=== PATIENT | female | born 1990 | race Caucasian/White ===

== ENCOUNTER 2018-08-09 22:31 | Inpatient (IN) | payer MEDICAID, SELFPAY ==
[2018-06-03 10:55] VITALS: BMI 28.5
[2018-08-09] MEDS: Lactated Ringers 1,000 ML 50 ML IV (23:15)
[2018-08-09 23:33] LABS: Absolute Lymphocyte Count 1.41 X10^3/ul (0.83-4.51); Absolute Neutrophil Count 10.9 X10^3/uL (2.0-7.7); Basophil# 0.01 X10^3/uL; Basophil% 0.1 % (0-1); Eosinophil# 0.07 X10^3/uL; Eosinophils% 0.5 % (0-5); Hematocrit 39.7 % (37-47); Hemoglobin 13.4 g/dl (12.0-15.0); Lymphocyte # 1.41 X10^3/ul (4.0); Lymphocyte % 10.4 % (19-41); Mean Corp Hgb Conc 33.8 g/gl (32-36); Mean Corpuscular Hgb 30.1 pg (27.0-32.0); Mean Corpuscular Volume 89.2 fL (81-99); Mean Platelet Vol. 12.4 fl (6.2-12.0); Monocyte% 8.1 % (0-10); Neutrophil # 10.93 X10^3/uL (2.7-7.7); Neutrophil % 80.5 % (47-70); POSITIVE COUNT NO; POSITIVE DIFFERENTIAL NO; POSITIVE MORPHOLOGY NO; Platelet Count 160 K/mm3 (150-450); RBC Distribution Width CV 15.5 % (11.6-14.6); Red Blood Count 4.45 M/mm3 (4.2-5.4); White Blood Count 13.6 K/mm3 (4.4-11.0)
[2018-08-10] VITALS (15 sets, daily range): BP systolic 94–140; BP diastolic 47–67; PULSE 86–133; RESP 16–18; TEMP 36.2–36.9; O2SAT 95–100
[2018-08-10] MEDS: 0.9% Saline Lock 10 ML Syringe IV ×2 (00:28→03:08)
--- NOTE | 2018-08-10 01:51 | HP.PCM_ITS ---
- Problem List (1) Iron deficiency anemia during Status: Acute (2) Positive GBS test Status: Acute History Date of Admission: 08/09/18 Final MYA: 08/03/18 Gestational age: 41 Weeks and 0 Days History of this : This is a 28 year-old, G [1], P [0], at 41 weeks gestational age presenting to triage reporting regular and strong abdominal contractions. Patient denies SROM, VB or copious vaginal discharge. Patient reports +FM. Patient course overall uncomplicated, patient was being followed for anemia of toward the end of her and has taken an iron supplement for her symptoms. Otherwise, course has been uncomplicated. Medical History: Medical History (Last Reviewed 07/30/18 @ 14:52 by Shona Godinez) Anemia D64.9 History of wisdom tooth extraction K08.409 and not yet delivered Z34.90 Allergies fluconazole [From Diflucan] Allergy (Verified 08/09/18 23:14) Hives brompheniramine maleate [From Dimetapp DM Cold-Cough (PE)] Adverse Reaction (Verified 08/09/18 23:14) Other bloody nose dextromethorphan HBr [From Dimetapp DM Cold-Cough (PE)] Adverse Reaction (Verified 08/09/18 23:14) Other bloody nose diphenhydramine HCl [From Benadryl] Adverse Reaction (Verified 08/09/18 23:14) Other bloody nose phenylephrine HCl [From Dimetapp DM Cold-Cough (PE)] Adverse Reaction (Verified 08/09/18 23:14) Other bloody nose Home Medications: Home Medications cholecalciferol (vitamin D3) 4,000 unit capsule 2,000 unit PO DAILY 06/03/18 ferrous sulfate 325 mg (65 mg iron) tablet 325 mg PO BID tab 06/03/18 lactobacillus combination no.9 4 billion cell capsule PO cap 06/03/18 Vits [Prenatabs FA] 1 tab PO DAILY 08/09/18 Smoking Status: Never smoker Alcohol: None Number of Fetus(es): 1 Heart Tracing: Baseline 120, moderate variability, + accels, no decels noted TOCO Analysis: Ctx q 2-5 minutes, palpate mild to moderate in strength History Past Pregnancies: Past Pregnancies Delivery Date Name GA/Weeks Outcome Route Weight Infant Gender Labor Length Anesthesia Delivery Location Provider FOB Labs: Negative GC/CT, Trich, yeast, BV cultures; Urine Culture Neg, Urine Tox Negative, HIV NR, HepBsAg Neg, Rubella Imm, Syphilis Neg, CF carrier screen Neg, AB+ Abs Neg, 1 hour GCT elevated with subsequent 3 hour GTT WNL, H/H = 12.6/38.3 --> 10.5/33.3 --> 12.1/38.2, GBS Pos Expected Infant Delivery Method: Spontaneous Vaginal Describe any other labor & delivery plans:: Planning NCB Number of Visits: Initiated at 7+5 weeks x 15 visits Review of Systems Constitutional: Denies: Chills, Fever, Weight Change HEENT: Denies: Head Aches, Sinus Congestion, Sinus Drainage Cardiovascular: Denies: Chest Pain, Palpitations Respiratory: Denies: Cough, Shortness of breath at rest, Sputum production Gastrointestinal: Denies: Abdominal Pain, Nausea, Vomiting Genitourinary: Denies: Dysuria Musculoskeletal: Denies: Joint Pain, Joint Tenderness Skin: Denies: Rash, Wounds Neurological: Denies: Numbness, Tingling, Focal weakness Psychiatric: Denies: Anxiety, Depression, Homicidal Ideations, Suicidal Ideations Hematologic/ Lymphatic: Denies: Easy Bruising, Easy Bleeding Physical Exam Vitals: See nursing note for vital signs - normotensive and afebrile General: Alert, Oriented x3, No apparent distress HEENT: Atraumatic, Normocephalic. Negative for: Thyromegaly, Lymphadenopathy Cardiovascular: Regular rate, Regular Rhythm Lungs: Clear to auscultation Abdomen: Bowel Sounds Present, Gravid Neurological: Deep Tendon Reflexes 2+/4 and Symmetrical, Neuro grossly intact [employer]OR: Normal external genitalia Estimated gestational size: Appropriate for gestational size - EFW = 7.5# Cervix Dilation (cm): 4 Station: -1 Effacement (%): 90 Assessment/Plan All Active Problems (Last Reviewed 07/30/18 @ 14:52 by Shona Godinez) Iron deficiency anemia during (Acute) Positive GBS test (Acute) Segmental and somatic dysfunction of sacral region (Acute) Segmental and somatic dysfunction of lumbar region (Acute) This is a 28 year-old, G [1], P [0], at 41 weeks gestational age, Early Active Labor, Category I FHT P: 1) Admit patient - start IV, draw bloodwork CBC and T+S ordered 2) Encourage PO hydration and movement 3) Patient may utilize shower for hydrotherapy 4) Nitrous Oxide use PRN per patient's request 5) Dr. Ledezma OB back-up physician notified of admission Nallely ALBERT
[2018-08-10] MEDS: Lactated Ringers 1,000 ML 50 ML IV ×4 (04:18→14:32)
[2018-08-10] MEDS: fentaNYL-bupivacaine (epidural) 100 ML BAG EPIDURAL ×3 (04:52→14:32)
--- NOTE | 2018-08-10 06:55 | PN.OBGYN_ITS ---
Patient Problems: Active and Suspected Problems (Last Reviewed 07/30/18 @ 14:52 by Shona Godinez) Iron deficiency anemia during (Acute) Positive GBS test (Acute) Subjective: Patient labored well throughout night, made decision for epidural. Patient feels very comfortable now with epidural in place. Decision made to do SVE and break bag of gordon at this time. Kay catheter also planned to be placed by nursing staff. Objective: VSS, Afebrile FHT baseline 130, moderate variability, + accels, no decels noted Ctx q 3 minutes, palpate moderately strong SVE = 5/100/0 --> AROM for moderate light blood and meconium stained fluid --> 6/90/0 - Physical Exam General: Alert, Oriented x3, Cooperative HEENT: Atraumatic, Normocephalic Lungs: Normal air movement Cardiovascular: Regular rate Abdomen: Soft, Non Tender Extremities: No edema, Capillary Refill Less than 3 Seconds Skin: No rashes, No breakdown Musculoskeletal: No Tenderness to Palpation of Joints or Extremities Neurological: Cranial nerves II-XII grossly intact Psych/Mental Status: Normal Affect, Appropriate Weight: 169 lb 12.8 oz Body Mass Index (BMI) 30.0 Intake and Output for Last 24 Hours 08/08/18 08/09/18 08/10/18 23:59 23:59 23:59 Intake Total 1981 Output Total 200 / 200 Balance 1782 / 1782 Laboratory Tests Past 24 Hrs 08/09/18 08/09/18 23:12 23:12 WBC 13.6 H RBC 4.45 Hgb 13.4 Hct 39.7 MCV 89.2 MCH 30.1 MCHC 33.8 RDW 15.5 H RDW Differential 51.0 H Plt Count 160 MPV 12.4 H Immature Gran % (Auto) 0.400 Neut % (Auto) 80.5 H Lymph % (Auto) 10.4 L [place] % (Auto) 8.1 Eos % (Auto) 0.5 Baso % (Auto) 0.1 Absolute Neuts (auto) 10.9 H Absolute Lymphs (auto) 1.41 Total Counted Not Reportable Blood Type AB POSITIVE Antibody Screen NEGATIVE Medical Necessity - Tobacco Use Smoking Status: Never smoker Assessment/Plan All Active Problems (Last Reviewed 07/30/18 @ 14:52 by Shona Godinez) Iron deficiency anemia during (Acute) Positive GBS test (Acute) Segmental and somatic dysfunction of sacral region (Acute) Segmental and somatic dysfunction of lumbar region (Acute) 28 y/o @ 41 weeks, Active Labor, Category I FHT P: 1) Continue present management 2) Encourage position changes once urinary kay catheter placed 3) Consider IV pitocin for labor augmentation if contractions start to space out at this time 4) Dr. Ledezma updated on patient status Nallely Padron APRN-MARSHALL
[2018-08-10] MEDS: Ondansetron 4 MG/2 ML Vial IV ×2 (06:57→11:18)
[2018-08-10] MEDS: Oxytocin 30 units/NS 500 ml 30 UNITS/500 ML IV.SOLN IV (09:14)
--- NOTE | 2018-08-10 11:32 | PCM.PN.BLA ---
Progress Note Patient remains comfortable with epidural - nursing staff has checked patient at this time. She is 9cm currently and baby is asynclitic. Will continue changing patient's position and then start trial of pushing once she is complete. Nallely Padron APRN-MARYCHUYM
--- NOTE | 2018-08-10 14:36 | PCM.PN.BLA ---
Progress Note Addendum: SVE recheck by nursing staff about an hour ago - AL/100/-1 to 0 station. Thick meconium noted now. Category I-II FHT noted, minimal variability now without any accels, occasional early decels. +caput noted difficulty noted by nursing staff to assess for positioning d/t caput. Patient resting soundly, will recheck cervix once patient awake. Anticipate that patient will need to labor down. Dr. Ledezma appraised of patient status.
--- NOTE | 2018-08-10 16:22 | PN.OBGYN_ITS ---
Patient Problems: Active and Suspected Problems (Last Reviewed 07/30/18 @ 14:52 by Shona Godinez) Iron deficiency anemia during (Acute) Positive GBS test (Acute) Subjective: Patient has been resting and sleeping well - RN called this provider to evaluate presentation. Per nursing staff, something just feels different. Bedside ultrasound confirms vtx presentation. This provider to do SVE and assess position Objective: FHT baseline 135, moderate variability, few accels, early decels and rare mild variables Ctx q 2-4 minutes, lasting 60 seconds, palpate strong SVE = 9.5/100/-1 with caput to 0. LOT by Lazaro's - difficult to assess position by SVE alone. Majority of head above ischial spines. Midpelvis very narrow on exam and pubic arch slightly narrow. Evidence of Deep Transverse Arrest - Physical Exam General: Alert, Oriented x3, Cooperative Lungs: Normal air movement Abdomen: Soft, Non Tender Extremities: No edema Neurological: Deep Tendon Reflexes 2+/4 and Symmetrical Psych/Mental Status: Normal Affect, Appropriate Weight: 169 lb 12.8 oz Body Mass Index (BMI) 30.0 Intake and Output for Last 24 Hours 08/08/18 08/09/18 08/10/18 23:59 23:59 23:59 Intake Total 1981 / 1981 Output Total 200 / 200 Balance 1782 / 1782 Laboratory Tests Past 24 Hrs 08/09/18 08/09/18 23:12 23:12 WBC 13.6 H RBC 4.45 Hgb 13.4 Hct 39.7 MCV 89.2 MCH 30.1 MCHC 33.8 RDW 15.5 H RDW Differential 51.0 H Plt Count 160 MPV 12.4 H Immature Gran % (Auto) 0.400 Neut % (Auto) 80.5 H Lymph % (Auto) 10.4 L [place] % (Auto) 8.1 Eos % (Auto) 0.5 Baso % (Auto) 0.1 Absolute Neuts (auto) 10.9 H Absolute Lymphs (auto) 1.41 Total Counted Not Reportable Blood Type AB POSITIVE Antibody Screen NEGATIVE Medical Necessity - Tobacco Use Smoking Status: Never smoker Assessment/Plan All Active Problems (Last Reviewed 07/30/18 @ 14:52 by Shona Godinez) Iron deficiency anemia during (Acute) Positive GBS test (Acute) Segmental and somatic dysfunction of sacral region (Acute) Segmental and somatic dysfunction of lumbar region (Acute) 28 y/o @ 41 weeks, Protracted Active Phase, Category I to II FHT 1) Discussed with patient and family concerns of lack of descent and constricted midpelvis with evidence of Deep Transverse Arrest on exam 2) Consultation with Dr. Ledezma - discussed that by 5:30pm if no cervical change noted, patient will be considered arrest of dilation. Plan for primary LTCS if no cervical change noted. 3) All questions answered 4) Reassess SVE by 5:30pm Nallely ALBERT
[2018-08-10] MEDS: CHLORHEXIDINE GLUC 2% CLOTH 1 EACH TOWELETTE TOPICAL (17:15)
--- NOTE | 2018-08-10 17:21 | PCM.PN.BLA ---
Progress Note Cervical recheck done - cervix is unchanged and even more swollen now 9/100/0 with +caput noted. Decision made to progress to primary LTCS. Orders for antibiotics faxed, patient is being prepped by nursing staff for . Transfer of care to medical management. Nallely Padron APRN-MARSHALL
[2018-08-10] MEDS: Cefazolin 2 GM in 0.9% Normal Saline 100 ML IV (17:58)
[2018-08-10] MEDS: Oxytocin 30 units/NS 500 ml 30 UNITS/500 ML IV.SOLN 167 UNITS IV (18:08)
--- NOTE | 2018-08-10 18:55 | OP.PCM_ITS ---
Problem List (1) 41 weeks gestation of Status: Acute (2) Failure to progress in labor Status: Acute Report of Operation Date of Procedure: 08/10/18 Pre-Operative Diagnosis: 41 week gestation, failure to progress, CPD Post-Operative Diagnosis: As above Surgery/Procedure Performed:: PLTCS via pfannenstiel incision Description of Surgical Findings:: 8lb 12oz and in transverse position with significant caput. Pelvis felt to be narrow. Normal appearing uterus, bilateral tubes, bilateral ovaries. Placenta normal appearing with a 3 vessel cord. Type of Anesthesia:: Epidural Special Medications: None Specimen's removed: Placenta Drains: Mclaughlin Estimated Blood Loss (mL): 600 cc Fluids Replaced: 1000 cc Description of Procedure: Patient was prepped and draped in usual sterile fashion in supine position. Epidural anesthesia was noted to be adequate. A Pfannenstiel skin incision was made with the scalpel and the incision was carried down to the underlying layer of fascia. The fascia was incised in the midline. The fascia was then dissected off of the rectus muscles cephalad and caudad using the Bovie cautery. The rectus muscles were in the midline. The peritoneum was entered sharply and extended cephalad and caudad with good visualization of the bladder. A bladder flap was created. A low transverse incision was made on the uterus. VMI was delivered through the uterine incision without any force or delay. The cord was clamped and cut after a 60 sec delay, and the infant was then handed off to the nursery staff. The placenta was manually extracted. The uterus was cleared of all clot and debris. The uterus was exteriorized and noted to be normal with normal bilateral adnexa. The uterine incision was closed in a running locked fa shion. A hematoma under the serosa of the uterus, and above the left side of the uterus was noted. The hematoma was noted to be about 2x3 cm in size, and not increasing in size. Several additional [id number] sutures were placed along the uterine incision until hemostasis was noted. The uterus was then placed back into the abdomen. The uterine incision was again inspected and noted to be hemos tatic. The hematoma was again inspected and noted to be stable in size. The peritoneum was closed in running fashion. The fascia was closed in running fashion. The subcutaneous space was copiously irrigated, and then closed in a running fashion. The skin was closed in a subcuticular fashion, and steri strips were placed over the incision. A dressing was placed over the incision. Instrument counts were correct. The patient tolerated the procedure well and was taken to the recovery room in stable condition. Grafts/Implants Used: None - Complications None - Admit VTE Documentation VTE Present on Admission: No VTE Mechan Device Prophylaxis: SCD's VTE Pharm Prophylaxis ordered?: Yes Delivery Final MYA: 08/03/18 Gestational age: 41 Weeks and 0 Days Indications for : Failure to Progress Amniotic Membrane Rupture Type: Artificial Amniotic Fluid Description: Moderate meconium Drain: Mclaughlin to straight drain Cord Entanglement: None Cord Vessel Description: 3 Vessels Infant Gender: Male Delayed cord clamping: Yes Pt instructed on risks of surgery: Bleeding, Infection, Injury to surrounding structure(s) including bowel and bladder Complications: None Baby B - Information Amniotic Membrane Rupture Type: Spontaneous Presentation: Vertex - Operative Information Cord Entanglement: None Cord Vessel Description: 3 Vessels Infant B gender: Male
[2018-08-10] MEDS: Lactated Ringers 1,000 ML 100 ML IV (20:08)
--- NOTE | 2018-08-10 20:59 | NURSING ---
epidural catheter removed, blue tip intact
[2018-08-10] MEDS: Ketorolac 30 MG/ML Syringe IV (23:46)
[2018-08-11] VITALS (17 sets, daily range): BP systolic 101–127; BP diastolic 54–68; PULSE 92–114; RESP 16–18; TEMP 36.2–36.9; O2SAT 96–97
[2018-08-11] MEDS: Ketorolac 30 MG/ML Syringe IV ×2 (05:37→10:27)
[2018-08-11] MEDS: Lactated Ringers 1,000 ML 100 ML IV (05:38)
[2018-08-11 06:16] LABS: Hematocrit 30.4 % (37-47); Mean Corp Hgb Conc 32.9 g/gl (32-36); Mean Corpuscular Hgb 29.7 pg (27.0-32.0); Mean Corpuscular Volume 90.2 fL (81-99); Mean Platelet Vol. 12.3 fl (6.2-12.0); Platelet Count 129 K/mm3 (150-450); RBC Distribution Width CV 15.7 % (11.6-14.6); RBC Distribution Width SD 50.6 fl (35.1-43.9); Red Blood Count 3.37 M/mm3 (4.2-5.4); White Blood Count 15.5 K/mm3 (4.4-11.0)
[2018-08-11 06:36] LABS: Scan Indicated on CBC? Y/N NO
--- NOTE | 2018-08-11 10:09 | PCM.PN.OB ---
Patient Problems: Active and Suspected Problems (Last Reviewed 07/30/18 @ 14:52 by Shona Godinez) Iron deficiency anemia during (Acute) Positive GBS test (Acute) 41 weeks gestation of (Acute) Failure to progress in labor (Acute) Subjective: Patient sitting up in bed finishing her breakfast at this time and getting ready to help infant latch. Patient reports that baby is every eager to feed and at times gets fussy at the breast. Patient reports she has been up to the bathroom to ambulate. she reports bleeding is tapering down and that incision pain is well controlled. Patient denies any other issues at this time. Objective: VSS, Afebrile - see nursing notes Nipples slightly flat with ecchymoses at nipple tips Abdomen NT x 4 quadrants, dressing dry and intact FF midline 2FB below umbilicus +2/4 reflexes in LE, no edema noted, negative calf tenderness to palpation scant rubra lochia - Physical Exam General: Alert, Oriented x3, Cooperative HEENT: Atraumatic, Normocephalic Neck: Supple Lungs: Normal air movement Cardiovascular: Regular rate, Regular Rhythm Abdomen: Soft, Non Tender, - - Dressing dry and intact, FF midline 2FB below umbilicus Extremities: No edema, Capillary Refill Less than 3 Seconds Skin: No rashes, No breakdown Musculoskeletal: No Tenderness to Palpation of Joints or Extremities Neurological: Cranial nerves II-XII grossly intact Psych/Mental Status: Normal Affect, Appropriate Vital Signs Temp Pulse Resp BP Pulse Ox 97.6 F L 114 H 16 111/54 L 96 08/11/18 09:00 08/11/18 09:00 08/11/18 09:00 08/11/18 09:00 08/11/18 09:00 Oxygen Delivery Method Room Air Weight: 169 lb 12.8 oz Body Mass Index (BMI) 30.0 Intake and Output for Last 24 Hours 08/09/18 08/10/18 08/11/18 23:59 23:59 23:59 Intake Total 2390 / 2390 1479 / 1479 Output Total 800 / 800 975 / 975 Balance 1590 / 1590 504 / 504 Laboratory Tests Past 24 Hrs 08/11/18 05:45 WBC 15.5 H RBC 3.37 L Hgb 10.0 L Hct 30.4 L MCV 90.2 MCH 29.7 MCHC 32.9 RDW 15.7 H RDW Differential 50.6 H Plt Count 129 L MPV 12.3 H Medical Necessity - Tobacco Use Smoking Status: Never smoker Assessment/Plan All Active Problems (Last Reviewed 07/30/18 @ 14:52 by Shona Godinez) Iron deficiency anemia during (Acute) Positive GBS test (Acute) 41 weeks gestation of (Acute) Failure to progress in labor (Acute) Segmental and somatic dysfunction of sacral region (Acute) Segmental and somatic dysfunction of lumbar region (Acute) 28 y/o s/p Primary LTCS for failure to progress, POD #1 P: 1) Continue PP orders at this time, Consultation visit also 2) Anticipate discharge to home tomorrow night or Sunday AM Nallely ALBERT
[2018-08-11] MEDS: Enoxaparin 40 MG/0.4 ML Syringe SC (10:27)
[2018-08-11] MEDS: Senna/Docusate Sodium 1 Tablet PO (17:02)
[2018-08-11] MEDS: Ibuprofen 600 MG Tablet PO ×2 (17:02→23:23)
--- NOTE | 2018-08-12 00:29 | NURSING ---
Mclaughlin catheter discontinued by previous nurse. Pt. has had two voids since discontinuation and reports no issues with voiding. IV was also discontinued per previous nurse d/t it coming out of place when pt. showered.
[2018-08-12 02:36] VITALS: RESP 15; TEMP 36.2
[2018-08-12 02:51] VITALS: BP 123/59; PULSE 91; RESP 18; TEMP 36.2; O2SAT 97
[2018-08-12 08:00] VITALS: BP 118/67; PULSE 78; RESP 16; TEMP 36
--- NOTE | 2018-08-12 08:21 | PCM.DC.D&C ---
Discharge Diet: No Restrictions Discharge Activity: Return to Normal Activity, May Shower, May Take a Tub Bath - in 2 weeks. Allergies/Adverse Reactions: Allergies fluconazole [From Diflucan] Allergy (Verified 08/09/18 23:14) Hives brompheniramine maleate [From Dimetapp DM Cold-Cough (PE)] Adverse Reaction (Verified 08/09/18 23:14) Other bloody nose dextromethorphan HBr [From Dimetapp DM Cold-Cough (PE)] Adverse Reaction (Verified 08/09/18 23:14) Other bloody nose diphenhydramine HCl [From Benadryl] Adverse Reaction (Verified 08/09/18 23:14) Other bloody nose phenylephrine HCl [From Dimetapp DM Cold-Cough (PE)] Adverse Reaction (Verified 08/09/18 23:14) Other bloody nose Medications to take at Discharge cholecalciferol (vitamin D3) 4,000 unit capsule 2,000 unit PO DAILY 06/03/18 ferrous sulfate 325 mg (65 mg iron) tablet 325 mg PO BID tab 06/03/18 lactobacillus combination no.9 4 billion cell capsule PO cap 06/03/18 Vits [Prenatabs FA] 1 tab PO DAILY 08/09/18 Docusate Sodium [Colace] 100 mg PO BID PRN PRN #60 cap 08/12/18 Ibuprofen [Motrin] 800 mg PO TID PRN PRN #60 tab 08/12/18 The following prescriptions were given: Docusate Sodium [Colace] 100 mg PO BID PRN PRN #60 cap PRN Reason: Constipation Transmission Status: Pending to [facility] Ibuprofen [Motrin] 800 mg PO TID PRN PRN #60 tab PRN Reason: Pain Transmission Status: Pending to [facility] Primary Care Physician: Calvin Drew III, MD [Primary Care Provider] - Test Results: Test results from this visit will be discussed in further detail at your follow-up appointment, if applicable. Please Follow Up With: Elba Ledezma, - [phone] When: In our office in 1-2 and 6 weeks or as needed
--- NOTE | 2018-08-12 08:22 | PCM.PN.OB ---
Patient Problems: Active and Suspected Problems (Last Reviewed 07/30/18 @ 14:52 by Shona Godinez) Iron deficiency anemia during (Acute) Positive GBS test (Acute) 41 weeks gestation of (Acute) Failure to progress in labor (Acute) Subjective: Pain well controlled, average lochia. Positive flatus but no bowel movement. Breast-feeding is going well. Patient has not taken any narcotics for pain control. - Physical Exam General: Alert, Oriented x3, Cooperative, No apparent distress HEENT: Normocephalic Abdomen: Soft, Distended - Mildly, softly, Tender - Appropriate Skin: No rashes, Incision - Bandage with small amount of sanguinous drainage that has not increased from line that was drawn previously. Otherwise its dry and intact. No erythema surrounding the bandage Psych/Mental Status: Normal Affect, Appropriate Vital Signs Temp Pulse Resp BP Pulse Ox 97.1 F L 91 18 123/59 H 97 08/12/18 02:51 08/12/18 02:51 08/12/18 02:51 08/12/18 02:51 08/12/18 02:51 Oxygen Delivery Method Room Air Weight: 77.02 kg Body Mass Index (BMI) 30.0 Intake and Output for Last 24 Hours 08/10/18 08/11/18 08/12/18 23:59 23:59 23:59 Intake Total 2390 / 2390 1479 / 1479 Output Total 800 / 800 1425 / 1425 Balance 1590 / 1590 54 / 54 Medical Necessity - Tobacco Use Smoking Status: Never smoker Assessment/Plan All Active Problems (Last Reviewed 07/30/18 @ 14:52 by Shona Godinez) Iron deficiency anemia during (Acute) Positive GBS test (Acute) 41 weeks gestation of (Acute) Failure to progress in labor (Acute) Segmental and somatic dysfunction of sacral region (Acute) Segmental and somatic dysfunction of lumbar region (Acute) 28-year-old female status post primary section for arrest of dilatation and descent. Mild acute blood loss anemia is appropriate for blood loss during surgery, patient is tolerating this well. Patient has not used narcotics for pain control. Declines narcotic prescription. Will be discharged home and is to alternate NSAIDs and acetaminophen and may use heat or ice as noted. If pain is not well controlled she can contact the office. She is to follow-up in the office in 1-2 in 6 weeks. She is breast-feeding and the is doing well. Patient desires discharge home today.
--- NOTE | 2018-08-12 08:28 | PCM.DC.SUM ---
Discharge Date and Diagnosis - Problem List Patient Problems: Active and Suspected Problems (Last Reviewed 07/30/18 @ 14:52 by Shona Godinez) Iron deficiency anemia during (Acute) Positive GBS test (Acute) 41 weeks gestation of (Acute) Failure to progress in labor (Acute) Date of Admission: 08/09/18 Date of Discharge: 08/12/18 - Primary Discharge Diagnosis Active and Suspected Problems (Last Reviewed 07/30/18 @ 14:52 by Shona Godinez) Iron deficiency anemia during (Acute) Positive GBS test (Acute) 41 weeks gestation of (Acute) Failure to progress in labor (Acute) Hospital Course and Treatment Operations: - - primary LTCS Procedures: None Summary of Care Provided: The patient is a 28 year old primigravida female presented in labor. She progressed to 9 cm. She then had arrest of dilatation and descent. She remained 9 cm for greater than 6 hours and underwent a primary low transverse section. This was performed without difficulty. Postoperatively the patient had mild acute blood loss anemia. She was tolerating this well. By postoperative day #2 she is ambulating, urinating tolerating regular diet and oral pain medications. She was discharged home with routine instructions and to follow-up in the office in 1-2 and in 6 weeks or as needed. She did not use any narcotics while she was in the hospital so narcotic prescription was not given for discharge home. If her pain is poorly controlled at home she is to contact the office. The was breast-feeding and doing well in the regular nursery. [] Patient Problems: Active and Suspected Problems (Last Reviewed 07/30/18 @ 14:52 by Shona Godinez) Iron deficiency anemia during (Acute) Positive GBS test (Acute) 41 weeks gestation of (Acute) Failure to progress in labor (Acute) - Physical Exam Vital Signs Temp Pulse Resp BP Pulse Ox 97.1 F L 91 18 123/59 H 97 08/12/18 02:51 08/12/18 02:51 08/12/18 02:51 08/12/18 02:51 08/12/18 02:51 Oxygen Delivery Method Room Air Weight: 77.02 kg Body Mass Index (BMI) 30.0 Intake and Output for Last 24 Hours 08/10/18 08/11/18 08/12/18 23:59 23:59 23:59 Intake Total 2390 / 2390 1479 / 1479 Output Total 800 / 800 1425 / 1425 Balance 1590 / 1590 54 / 54 Discharge Diet: No Restrictions Discharge Activity: Return to Normal Activity, May Shower, May Take a Tub Bath - in 2 weeks. Home Medications: Medications to take at Discharge cholecalciferol (vitamin D3) 4,000 unit capsule 2,000 unit PO DAILY 06/03/18 ferrous sulfate 325 mg (65 mg iron) tablet 325 mg PO BID tab 06/03/18 lactobacillus combination no.9 4 billion cell capsule PO cap 06/03/18 Vits [Prenatabs FA] 1 tab PO DAILY 08/09/18 Docusate Sodium [Colace] 100 mg PO BID PRN PRN #60 cap 08/12/18 Ibuprofen [Motrin] 800 mg PO TID PRN PRN #60 tab 08/12/18 Following Prescrptions Were Given to Patient: Docusate Sodium [Colace] 100 mg PO BID PRN PRN #60 cap PRN Reason: Constipation Transmission Status: Pending to [facility] Ibuprofen [Motrin] 800 mg PO TID PRN PRN #60 tab PRN Reason: Pain Transmission Status: Pending to [facility] Primary Care Physician: Calvin Drew III, MD [Primary Care Provider] - Please Follow Up With: Elba Ledezma, DO - [phone] When: In our office in 1-2 and 6 weeks or as needed Medical Necessity - Tobacco Use Smoking Status: Never smoker Meaningful Use Info Meaningful Use Diagnoses (Choose all that apply): None applicable
[2018-08-12] MEDS: Enoxaparin 40 MG/0.4 ML Syringe SC (10:16)
[2018-08-12] MEDS: Ibuprofen 600 MG Tablet PO (10:16)
[2018-08-12 14:00] VITALS: BP 117/72; PULSE 82; RESP 16; TEMP 36
== END 2018-08-12 15:05 | disposition home or self-care (01) | DRG 540 ==
PROVIDERS: Admitting Provider Obstetrics & Gynecology; Family Provider Family Medicine; PCP Family Medicine; Referring Provider Advanced Practice Midwife; Visit Provider Obstetrics & Gynecology
DX: O62.0 Primary inadequate contractions (principal); Z37.0 Single live birth; O99.824 Streptococcus B carrier state complicating childbirth; O48.0 Post-term pregnancy; Z3A.41 41 weeks gestation of pregnancy; D50.9 Iron deficiency anemia, unspecified; O99.02 Anemia complicating childbirth; O33.9 Maternal care for disproportion, unspecified; O77.0 Labor and delivery complicated by meconium in amniotic fluid; O64.0XX0 Obstructed labor due to incomplete rotation of fetal head, not applicable or unspecified
CPT/HCPCS: 59025; 59050; 85025; 85027; 86850; 86900; 99218; J7120; A4216; G0378; J2405

== ENCOUNTER 2020-05-25 09:07 | Emergency (ER) | payer OTHER, SELFPAY ==
[2020-05-25 09:08] VITALS: BP 90/74; PULSE 91; RESP 16; TEMP 35.6; O2SAT 98; BMI 23.1
--- NOTE | 2020-05-25 09:16 | ED.DCSUM_ITS ---
History of Present Illness Chief Complaint: Nausea/Vomiting/Diarrhea Informant: Patient Onset: Today Narrative: Acute vomiting diarrhea starting at 3 AM this morning. Too many to count. No hematemesis, no melena or hematochezia. Denies abdominal pain. Currently on h er menstrual period. Denies recent antibiotics. Denies any sick contacts. Reports chills. No urinary symptoms. No fevers or cough. Similar symptoms 2 years ago reporting getting dehydrated. Denies Covid exposures, no Covid infection in the past. States been tested in the past has been negative. Only abdominal surgery is . Prior similar symptoms: Yes Past Medical History - Allergies and Home Meds Allergies/Adverse Reactions: Allergies fluconazole [From Diflucan] Allergy (Verified 05/25/20 09:08) Hives brompheniramine maleate [From Dimetapp DM Cold-Cough (PE)] Adverse Reaction (Verified 05/25/20 09:08) Other bloody nose dextromethorphan HBr [From Dimetapp DM Cold-Cough (PE)] Adverse Reaction (Verified 05/25/20 09:08) Other bloody nose diphenhydramine HCl [From Benadryl] Adverse Reaction (Verified 05/25/20 09:08) Other bloody nose phenylephrine HCl [From Dimetapp DM Cold-Cough (PE)] Adverse Reaction (Verified 05/25/20 09:08) Other bloody nose Primary Care Physician: Calvin Drew III, MD [Primary Care Provider] - Past Medical History: None Smoking Status: Never smoker Review of Systems General: Denies: Chills, Fever, Sweats Eyes: Denies: Visual changes - bilaterally, Diplopia ENT: Denies: Rhinorrhea, Sore throat Cardiovascular: Denies: Chest pain, Palpitations Respiratory: Denies: Dyspnea, Cough, Dyspnea on exertion Gastrointestinal: Reports: Nausea, Vomiting, Diarrhea. Denies: Abdominal pain, Melena, Hematochezia Genitourinary: Denies: Dysuria, Hematuria, Frequency Musculoskeletal: Denies: Back pain, Extremity Pain Skin: Denies: Rash, Wounds Neurological: Denies: Headache, Weakness, Numbness Physical Exam Vital Signs/Narrative: Vital Signs Temp Pulse Resp BP Pulse Ox 05/25/20 09:08 96.1 F L 91 16 90/74 98 Inital Vital Signs reviewed: Yes General: Well nourished, Well developed, No Acute Distress Head: Normocephalic, Atraumatic Eyes: Perrl, EOMI ENT: No rhinorrhea, Dry mucous membranes, - - Mildly dry mucosal membranes. Neck: Supple, Nontender Cardiovascular: Regular rate, Regular rhythm, No murmurs Respiratory: No distress, CTA bilaterally, Chest nontender Abdomen: Soft, Nontender, Nondistended, Normal bowel sounds. Negative for: Guarding, Rebound tenderness Back: Nontender, Normal Inspection Extremities: Nontender, No edema Skin: Normal color, No rash Neurological: Alert, Oriented x3, Cranial nerves II-XII grossly intact, Normal Strength, Normal Sensation Psychological: Normal affect, Normal Mood Diagnostic/Tx/Re-eval - Medical Decision Making Abnormal Lab Results 05/25/20 05/25/20 11:25 Unknown Sodium 134 L Potassium 3.9 Chloride 99 Carbon Dioxide 24.0 Anion Gap 11 BUN 15 Creatinine 1.63 H Estim Creat Clear Calc 44.37 Est GFR (MDRD) Af Amer 48 L Est GFR (MDRD) Non-Af 40 L BUN/Creatinine Ratio 9.2 L Glucose 201 H Calcium 10.8 H Total Bilirubin 1.30 H AST 9 L ALT 15 Alkaline Phosphatase 108 Total Protein 10.0 H Albumin 5.3 H Globulin 4.7 H Albumin/Globulin Ratio 1.1 Urine Test Negative Patient nontoxic nontender abdomen. Mild dry mucosal membranes. She is order for 2 L of fluid and Zofran. I did check electrolytes which were normal however a creatinine 1.6 with no old for comparison. She denied any vomiting or diarrhea prior to this morning. hCG negative. No vomiting or diarrhea since medications. She had a mild headache during management able to tolerate p.o. intake with p.o. Tylenol. Discussed recheck labs outpatient by her PCP and continued oral hydration. Prescription of Zofran sent to her pharmacy. Covid testing negative. ED Disposition - Plan for ED Patient: Disposition: Home or Assisted Living Diagnosis: Vomiting and diarrhea, Renal insufficiency Instructions: ED Vomiting and Diarrhea ..., ED Renal Insufficiency Prescriptions: Ondansetron [Zofran Odt] 4 mg PO Q8H PRN PRN #10 tablet PRN Reason: Nausea Transmission Status: Pending to [facility] Referrals: Calvin Drew III, MD [Primary Care Provider] - Additional Instructions: Cr. 1.63. s/p 2 L IVF. Continue oral fluids at home Zofran as needed. Recheck labs by your PCP.
[2020-05-25] MEDS: Ondansetron 4 MG/2 ML Vial IV (09:34)
[2020-05-25] MEDS: 0.9% Normal Saline 1,000 ML 1000 ML IV ×2 (09:34→11:02)
[2020-05-25 10:12] LABS: ALB/GLOB Ratio 1.1 RATIO (0.9-2.4); AST(SGOT) 9 U/L (15-37); Alanine Aminotransfer ALT/SGPT 15 U/L (13-56); Albumin, Serum 5.3 g/dL (3.2-5.0); Alkaline Phosphatase 108 U/L (45-117); Anion Gap 11 (5-15); BUN 15 mg/dL (7-18); BUN/Creat Ratio 9.2 RATIO (10-20); Calcium,Total 10.8 mg/dL (8.5-10.1); Chloride 99 mmol/L (98-107); Creatinine, Serum 1.63 mg/dL (0.55-1.02); EST Glomerular Filtration Rate 40 mL/min (>60); Est Glom Filt Rate - Afr Amer 48 mL/min (>60); Estimated Creatinine Clearance 44.37 ml/min; Globulin 4.7 g/dL (2.2-4.2); Glucose 201 mg/dL (74-106); Potassium 3.9 mmol/L (3.5-5.1); Sodium Level 134 mmol/L (136-145)
[2020-05-25] MEDS: Acetaminophen 500 MG Tablet 1000 MG PO (11:02)
[2020-05-25 11:05] VITALS: BP 116/57; PULSE 105; RESP 18; O2SAT 99
[2020-05-25 11:47] LABS: Internal QC Validated? YES +Cl - CLEAR BKGD; Pregnancy, Urine Negative Negative
[2020-05-25 13:06] VITALS: BP 105/64; BP 15/6; RESP 16; TEMP 36.6; O2SAT 98
== END 2020-05-25 13:11 | disposition home or self-care (01) ==
PROVIDERS: Emergency Provider Emergency Medicine; PCP Family Medicine
DX: R11.2 Nausea with vomiting, unspecified (principal); R19.7 Diarrhea, unspecified; N28.9 Disorder of kidney and ureter, unspecified
CPT/HCPCS: 80053; 81025; 87426; 96361; 96374; 99284; J7030; A4216; J2405

== ENCOUNTER 2021-01-28 16:57 | Emergency (ER) | payer MEDICAID, SELFPAY ==
[2021-01-28 16:58] VITALS: BP 115/61; PULSE 89; RESP 14; TEMP 36.6; O2SAT 100; BMI 23.5
--- NOTE | 2021-01-28 17:27 | ED.VIS.FEGU ---
HPI HPI - Female History of Present Illness Chief Complaint: Vag Bld, Preg Pain Pain: Positive for Pelvic Pain Onset: Days (2) Context: Gradual Onset Timing: Continuous Quality: Positive for Cramping Location: Suprapubic (radiating into lowback) Current Severity: Mild Maximum Severity: Mild Worsened by: - (nothing) Relieved by: - (nothing) Bleeding Issue: Positive for Vaginal bleeding Onset: Days (2-3) Context: Gradual Onset Timing: Intermittent Current Severity: Spotting Maximum Severity: Spotting Associated Symptoms Associated Symptoms: Negative for Dysuria, Frequency, Urgency and Hematuria Last known menstrual period: 12/10/2020 Test: Positive, Urine and Home Sexually: Positive for Active and Single Partner P: 1 Ab: 0 Narrative Narrative: by home test has not had an ultrasound this yet, started having cramping and spotting within the last couple days. No syncope, presyncope, fevers, chills, urinary symptoms, or other symptoms right now. PFSH PFSH Medical History (Updated 01/28/21 @ 21:[address] Ervin Broussard MD) Anemia and not yet delivered Home Medications NK 01/28/21 [History Last Taken Unknown] Allergy/AdvReac Type Severity Reaction Status Date / Time fluconazole [From Diflucan] Allergy Hives Verified 01/28/21 17:00 brompheniramine maleate AdvReac Other Verified 01/28/21 17:00 [From Dimetapp DM Cold-Cough (PE)] dextromethorphan HBr AdvReac Other Verified 01/28/21 17:00 [From Dimetapp DM Cold-Cough (PE)] diphenhydramine HCl AdvReac Other Verified 01/28/21 17:00 [From Benadryl] phenylephrine HCl AdvReac Other Verified 01/28/21 17:00 [From Dimetapp DM Cold-Cough (PE)] Family History Other Breast cancer Cancer Hypertension Surgical History History of wisdom tooth extraction Social History (Updated 07/30/18 @ 15:[address] Linda Jj, BERTHA) Smoking Status: Never smoker alcohol intake: never substance use type: does not use what type of physical activity do you participate in: none ROS ROS ED Constitutional Constitutional ED: Denies chills or fever(s) Eyes Eyes: Denies change in vision or diplopia ENT ENT ED: Denies rhinorrhea or sore throat Cardiovascular Cardiovascular: Denies chest pain or palpitations Respiratory/Chest Respiratory/Chest: Denies cough or dyspnea Gastrointestinal Gastrointestinal: Reports as per HPI and abdominal pain; Denies diarrhea, nausea or vomiting Genitourinary Genitourinary ED: Reports as per HPI and vaginal bleeding; Denies dysuria or hematuria Musculoskeletal Musculoskeletal: Denies back pain or neck pain Integumentary Denies abscess or rash Neurologic Neurologic: Denies headache(s), paresthesias or weakness Psychiatric Psychiatric: Denies anxiety or suicidal thoughts EXAM Physical Exam Const Vital Signs: 01/28/21 16:58 01/28/21 19:26 01/28/21 21:30 Temperature 97.8 F Temperature Source Temporal Pulse Rate 89 70 Respiratory Rate 14 17 17 Blood Pressure 115/61 97/55 L Blood Pressure Mean 79 69 Pulse Ox 100 98 Oxygen Delivery Method Room Air Room Air Room Air Positive well nourished and well developed Constitutional Narrative: Well-appearing, pleasant, no distress General Appearance ED: well developed and NAD HEENT Reports moist mucous membranes normocephalic and atraumatic Eyes PERRL and EOMs intact bilaterally Neck full ROM and supple Resp normal respiratory effort and clear to auscultation bilaterally Cardio regular rate, regular rhythm and no murmurs Rate: Negative for tachycardic GI non-tender and non-distended Auscultation: normoactive bowel sounds Palpation: soft Speculum Exam - Vagina: vaginal bleeding Back/Spine no CVA tenderness General Back: other FROM Extremity normal to inspection General Extremety ED: Negative for edema, pulses abnormal or tenderness General Extremity: Negative for edema or pulses abnormal Neuro oriented x3, CN's II-XII intact bilaterally and no sensory deficits noted Sensorium / Orientation: awake and alert Motor Exam: strength 5/5 throughout Skin no rashes or lesions noted and no wounds MDM MDM MDM Narrative Medical decision making narrative: Performed a bedside ultrasound, no intrauterine definitively seen, possible double decidual sign, however her uterus appears to be off to the left and the possible gestational sac is only measuring 5.5 weeks, and in wanting to make sure that this is not actually an ectopic /ovary, and official ultrasound was obtained in addition to a quantitative hCG. Her blood type was checked previously, she is AB+ so RhoGam not indicated. Official ultrasound is similar to mine, which appears to be an empty gestational sac around 5-1/2 weeks. Quantitative hCG is 1334, discussed with Tamica Dennison with the [facility] clinic at [facility] locally, she agrees with having the patient being discharged, following up with a 48-hour quantitative hCG, will have the patient get that here and results will go to them and they will contact her after that result for further follow-up. Patient has counseled and is comfortable with the plan. We discussed reasons to return. Lab Data Attestation: I reviewed the patient's lab results. Labs: Laboratory Results - last 24 hr 01/28/21 19:29 HCG, Quant 1334 H Radiography Diagnostic Testing: Clinical Impression(s) from Imaging Studies Obstetrics Ultrasound 01/28/21 17:57 IMPRESSION: Intrauterine of uncertain viability. There is a intrauterine gestational sac but no embryo or yolk sac. Recommend follow-up OB ultrasound in 1-2 weeks. Electronically Signed: Rachid Brink MD at 19:52 EST Tel , Service support , Discharge Plan Triage Chief Complaint: Vag Bld, Preg ED Provider: Ervin Broussard Dx/Rx/DC Orders Clinical Impression: Threatened in early Instructions: ED Possible Miscarriage ... Prescriptions: No Action NK RF: 0 Other Ambulatory Orders: hCG Titer Quant., Serum (Routine) Timeframe: 20210131 Facility: [facility] - Location: Laboratory Ordered By: Dr. Ervin Broussard Primary Care Provider: Care Physician,No Primary Referrals: Jessica Baum MD [STAFF PHYSICIAN] - (and/or Tamica Dennison on sunday or after, as advised after your repeat blood test) Care Physician,No Primary [Primary Care Provider] - Disposition Disposition: Home, Self Care
--- NOTE | 2021-01-28 17:33 | ED.RN ---
pt blood type in medical record from previous . pt is AB+
--- NOTE | 2021-01-28 17:57 | US_ITS ---
INDICATION: pelvic pain, vag bleeding, preg - NO QUANT EXAMINATION: US OB Less Than 14 Weeks TECHNIQUE: Transabdominal pelvic ultrasound was performed. Grayscale, spectral waveform, and color flow Doppler evaluation of the adnexa. COMPARISON: None. FINDINGS: UTERUS: Measures 9.7 x 6.1 x 4.2 cm. RIGHT OVARY: Measures 3.1 x 1.7 x 1.7 cm. Normal. LEFT OVARY: Measures 2.7 x 2.4 x 0.8 cm. Normal. FREE FLUID: None. INTRAUTERINE GESTATIONAL SAC(s) (size/shape): Single. Mean sac diameter 0.5 cm. YOLK SAC: Not identified POLE: Not identified ESTIMATED GESTATION AGE: 5 weeks 2 days. US/Init OB < 14Wks US IMPRESSION: Intrauterine of uncertain viability. There is a intrauterine gestational sac but no embryo or yolk sac. Recommend follow-up OB ultrasound in 1-2 weeks. Electronically Signed: Rachid Brink MD at 19:52 EST Tel , Service support ,
--- NOTE | 2021-01-28 18:22 | CM.ED ---
SW Note Referral Source: Case Find Referral Reason: No Primary Care Physician (PCP) SW reviewed chart and noted that patient has no PCP. SW provided patient with list of [facility] Physician List for reference. SW also provided patient self pay packet. No other issues or concerns voiced at this time. SW remains available for any additional needs. Plan: Provided patient with PCP information Dinora SLAUGHTER
[2021-01-28 19:26] VITALS: RESP 17
[2021-01-28 20:37] LABS: hCG Titer Quant., Serum 1334 mIU/mL (1-3)
[2021-01-28 21:30] VITALS: BP 97/55; PULSE 70; RESP 17; O2SAT 98
== END 2021-01-28 21:46 | disposition home or self-care (01) ==
PROVIDERS: Emergency Provider Emergency Medicine
DX: O20.0 Threatened abortion (principal); Z3A.00 Weeks of gestation of pregnancy not specified
CPT/HCPCS: 76801; 84702; 99282

== ENCOUNTER → 2021-02-01 11:07 | Outpatient (CLI) | payer MEDICAID, SELFPAY ==
[2021-02-01 12:11] LABS: hCG Titer Quant., Serum 161 mIU/mL (1-3)
== END ==
PROVIDERS: Emergency Medicine; Referring Provider Advanced Practice Midwife; Visit Provider Advanced Practice Midwife
DX: O20.0 Threatened abortion (principal); Z3A.00 Weeks of gestation of pregnancy not specified
CPT/HCPCS: 36415; 84702

== ENCOUNTER 2022-01-23 09:25 | Inpatient (IN) | payer MEDICAID, SELFPAY ==
[2022-01-23] VITALS (20 sets, daily range): BP systolic 90–118; BP diastolic 45–67; PULSE 51–112; RESP 13–18; TEMP 36–36.6; O2SAT 96–100; BMI 28.3
[2022-01-23] MEDS: Lactated Ringers 1,000 ML 999 ML IV (09:53)
[2022-01-23] MEDS: Acetaminophen 500 MG Tablet 1000 MG PO ×3 (09:53→21:50)
[2022-01-23 10:25] LABS: Absolute Neutrophil Count 6.1 X10^3/uL (2.0-7.7); Basophil# 0.03 X10^3/uL; Basophil% 0.4 % (0-1); Eosinophil# 0.14 X10^3/uL; Eosinophils% 1.7 % (0-5); Hematocrit 36.5 % (37-47); Hemoglobin 11.7 g/dL (12.0-15.0); Lymphocyte % 18.9 % (19-41); Mean Corp Hgb Conc 32.1 g/dL (32-36); Mean Corpuscular Hgb 28.7 pg (27.0-32.0); Mean Corpuscular Volume 89.7 fL (81-99); Mean Platelet Vol. 12.1 fl (6.2-12.0); Monocyte# 0.54 X10^3/uL; Monocyte% 6.4 % (0-10); NRBC Flagged by Analyzer 0 % (0-5); Neutrophil % 71.9 % (47-70); Platelet Count 169 K/mm3 (150-450); RBC Distribution Width CV 14.8 % (11.6-14.6); RBC Distribution Width SD 47.8 fl (35.1-43.9); Red Blood Count 4.07 M/mm3 (4.2-5.4); White Blood Count 8.5 K/mm3 (4.4-11.0)
[2022-01-23] MEDS: Lactated Ringers 1,000 ML 150 ML IV (10:56)
[2022-01-23] MEDS: Sodium Citrate/Citric Acid 30 ML UDC PO (11:48)
[2022-01-23] MEDS: Cefazolin 2 GM in 0.9% Normal Saline 100 ML IV (12:09)
--- NOTE | 2022-01-23 12:35 | FALS_PTH ---
PATIENT: RAUL NIX LOC: [facility] U#:[id number] AGE/SX: 31/F ROOM: WP004 RE01/23/[address]: Dr. Elba Ledezma DO : 1990 BED: 1 DIS: 01/24/2022 SPEC #: [id number] RECD: 01/23/22 14:28 STATUS: MAYNOR TI #: [id number] CLARK: 01/23/22 12:[address]: Elba Ledezma DEPT: SURGICAL PATHOLOGY RECD BY: Princess Saenz Tissues: Fallopian tube Procedures: Surgery Specimen Level II HEADER OPERATION: Tubal ligation PRE-OP DIAGNOSIS: Sterilization TISSUE SUBMITTED: Fallopian tubes, suture in right tube MICROSCOPIC DIAGNOSIS Right fallopian tube, salpingectomy: Complete segment of fallopian tube with no pathologic change. Left fallopian tube, salpingectomy: Complete segment of fallopian tube with no pathologic change. AM:casa 01/25/2022 MICROSCOPIC DESCRIPTION Slides are reviewed. GROSS DESCRIPTION Received in fixative is one container labeled with the patient's name and designated bilateral fallopian tubes, right with stitch. The specimen consists of bilateral fallopian tubes. The right fallopian tube measures 6 cm in length and 0.6 cm in diameter and the left fallopian tube measures 5 cm in length and 0.5 cm in diameter. The right fallopian tube shows fimbrial end and left fallopian tube, no fimbrial end is identified. Sections reveal unremarkable cut surfaces. Tin Worker sections are submitted in two cassettes as follows: 1 ? right fallopian tube, 2 ? left fallopian tube. / SJ:rg 01/24/2022 TC:4 CPT: 59977 x2
--- NOTE | 2022-01-23 13:24 | PCM.OPRPT ---
Report of Operation Date of Procedure: 01/23/22 Pre-Operative Diagnosis: 39 week gestation, single IUP, history prior section, requests sterilization Post-Operative Diagnosis: As above Surgery/Procedure Performed:: RLTCS via pfannenstiel incision Bilateral salpingectomy Description of Surgical Findings:: VFI in cephalic presentation. Clear fluid. Normal appearing placenta with 3 VC. Normal appearing uterus and bilateral adnexa. Apgars 9, 9. Moderate amount of adhesive disease throughout. Dense fascia that was adhered to the rectus. Peritoneum was adhere to uterus along left and right side of uterus. Significant bladder adhesions to lower uterine segment. Adhesions of left fallopian tube to uterus and ovary. Surgeon: Elba Ledezma executive office manager: Suzanne GALVIN Type of Anesthesia: Spinal Special Medications: None Specimen's removed: Placenta Bilateral fallopian tubes Drains: Mclaughlin Estimated Blood Loss (mL): 500 Fluids Replaced: See anesthesia record Description of Procedure: The patient was taken to the operating room where spinal anesthesia was adequate. She was prepped and draped in the dorsal position with leftward tilt. A Pfannenstiel skin incision was made with a scalpel and this was carried down to the underlying layer of fascia. The fascia was incised in midline. The fascia was dense and unable to be bluntly dissected. The fascia was dissected using sharp dissection laterally. The fascia was dissected off of the rectus muscles. The rectus muscles were midline. The peritoneum was entered bluntly with good visualization of the bladder. The peritoneal incision was extended bluntly. The bladder was moderately adhered to the lower uterine segment, with peritoneal adhesions extending up laterally along the left and right side of the uterus. Using sharp dissection a bladder flap was created and adhesions were dissected down. A bladder blade was inserted. A low transverse incision was made on the uterus with a scalpel. Uterine incision was extended bluntly. The membranes were ruptured with an Allis for clear fluid. The head of the infant was flexed and delivered, followed by the shoulders and body of the infant easily without any traction, force, or delay. A vigorous viable female infant was delivered atraumatically and the cord was clamped and cut immediately. Infant was handed off to the nursery staff. The placenta was removed with manual extraction. The uterus was exteriorized. Uterine incision was closed with 1-0 Vicryl in a running locked fashion. Confirmed with the patient that she desired to proceed with sterilization. She again requested permanent sterilization. The right fallopian tube was followed out to the fimbriated end and elevated using the [place] clamps. Using the LigaSure device the mesosalpinx was serially clamped, cauterized, and transected hugging adjacent to the fallopian tube until reaching level of the cornua. Once at the level of the cornua the fallopian tube was transected. The same was performed and along the left side after following out the left fallopian tube to the fimbriated end. Some adhesions were noted, and a small amount of fimbriated ends were remaining adherent to the left ovary. The adnexa was hemostatic. Several additional [id number] sutures were placed along the hysterotomy for hemostasis. The uterus was placed back into the abdomen. The gutters were cleared. Hemostasis was again noted. Ivanna was placed over the lower uterine segment and hysterotomy. The fascia was closed with strata fix in a running fashion. The subcutaneous space was irrigated and made hemostatic with Bovie cautery. The subcutaneous space was reapproximated 3-0 Vicryl. The skin was closed with 4-0 Monocryl in a subcuticular fashion. A dressing was placed. Instrument, sponge, sharp counts were correct and the patient was taken to the recovery in stable condition. Grafts/Implants Used: None Procedure Start Time: 12:31 Complications None Admit VTE Documentation VTE Present on Admission: No VTE Mechan Device Prophylaxis: SCD's
[2022-01-23] MEDS: Oxytocin 15 Units/NS 250ml 15 UNITS/250 ML IV.SOLN 83 UNITS IV (14:00)
[2022-01-23] MEDS: Ketorolac 30 MG/ML Syringe IV ×2 (14:14→20:04)
[2022-01-23] MEDS: 0.9% Saline Lock 10 ML Syringe IV (14:15)
[2022-01-23 14:31] LABS: Pathology Specimen OB SEE PATHOLOGY REPORT
[2022-01-23] MEDS: Lactated Ringers 1,000 ML 100 ML IV (17:09)
--- NOTE | 2022-01-23 17:45 | NURSING ---
Reviewed and agreed with Alex GOMEZ charting.
--- NOTE | 2022-01-23 22:15 | NURSING ---
Pt ambulated to toilet and back without assistance. Tolerated well.
[2022-01-24 00:50] VITALS: BP 97/48; PULSE 85; RESP 16; TEMP 36.3; O2SAT 95; O2SAT 96
[2022-01-24] MEDS: 0.9% Saline Lock 10 ML Syringe IV ×3 (00:54→08:09)
[2022-01-24] MEDS: Ketorolac 30 MG/ML Syringe IV ×2 (03:08→08:09)
[2022-01-24 03:12] VITALS: BP 104/52; PULSE 81; RESP 16; TEMP 36.2; O2SAT 96
[2022-01-24] MEDS: Acetaminophen 500 MG Tablet 1000 MG PO ×3 (05:09→16:10)
[2022-01-24 05:23] LABS: Hematocrit 34.1 % (37-47); Mean Corp Hgb Conc 32.3 g/dL (32-36); Mean Corpuscular Hgb 29.1 pg (27.0-32.0); Mean Corpuscular Volume 90.2 fL (81-99); Mean Platelet Vol. 11.9 fl (6.2-12.0); Platelet Count 153 K/mm3 (150-450); RBC Distribution Width SD 48.8 fl (35.1-43.9); Red Blood Count 3.78 M/mm3 (4.2-5.4); White Blood Count 13.1 K/mm3 (4.4-11.0)
--- NOTE | 2022-01-24 07:10 | DS.PCM_ITS ---
Providers Date of Admission: 01/23/22 Primary Care Physician: EMMANUEL SILVA Reason For Visit: REPEAT C SECTION Diagnosis Discharge Diagnosis (1) Status post repeat low transverse section: Status: Acute Code(s): Z98.891 - History of uterine scar from previous surgery (2) Care and examination of lactating mother: Status: Acute Code(s): Z39.1 - Encounter for care and examination of lactating mother Medications at Discharge Home Medications ferrous sulfate 27 mg iron tablet 27 mg PO QODAY ANEMIA 01/23/22 [id number] 1 mg tablet 1 tab PO DAILY 01/23/22 Hospital Course Operations section Summary of Care Provided Hospital Course: Patient here for repeat section. Hospital course was uneventful. Physical Exam Narrative Patient seen at bedside. Feeling good. Pain controlled. Ambulating and voiding without difficulty. Passing flatus and had bowel movement this morning. Denies dizziness, headache, SOB or CP. Patient desires discharge home today. with minimal support. Const alert and no apparent distress General Appearance: cooperative and comfortable Exam Limitations: no limitations HEENT normocephalic Eyes General Eye: normal appearance of both eyes Neck full ROM General: normal visual inspection Chest Chest: symmetrical chest wall rise Resp normal respiratory effort and normal air movement Effort and Inspection: symmetric chest movement Auscultation: clear to auscultation bilaterally Cardio regular rate and regular rhythm GI normal to inspection, nondistended, normoactive bowel sounds Back/Spine normal ROM Extremity full ROM and no calf tenderness General Extremity: normal exam except as noted Skin no rashes or lesions noted Neuro CN's II-XII intact bilaterally Psych mental status grossly normal Weight / BMI Weight Weight: 165 lb 5.547 oz Body Mass Index (BMI) 28.3 ABG / Lab / Microbiology Data Result Diagrams: 01/24/22 05:15 Laboratory: Laboratory Results - last 24 hr 01/23/22 09:55: WBC 8.5, RBC 4.07 L, Hgb 11.7 L, Hct 36.5 L, MCV 89.7, MCH 28.7, MCHC 32.1, RDW Std Deviation 47.8 H, RDW Coeff of Estefany 14.8 H, Plt Count 169, MPV 12.1 H, Immature Gran % (Auto) 0.700, Neut % (Auto) 71.9 H, Lymph % (Auto) 18.9 L, [place] % (Auto) 6.4, Eos % (Auto) 1.7, Baso % (Auto) 0.4, Absolute Neuts (auto) 6.1, Absolute Lymphs (auto) 1.60, Nucleated RBC % 0 01/23/22 09:55: Blood Type AB POSITIVE, Antibody Screen NEGATIVE 01/24/22 05:15: WBC 13.1 H, RBC 3.78 L, Hgb 11.0 L, Hct 34.1 L, MCV 90.2, MCH 29.1, MCHC 32.3, RDW Std Deviation 48.8 H, RDW Coeff of Estefany 15.0 H, Plt Count 153, MPV 11.9 D/C Instructions Discharge Diet: No restrictions Discharge Activity: May Not Drive (2 weeks) and May Shower May resume sexual activity in: 6-8 weeks Weight Bearing Status: Weight bearing as tolerated Call your doctor if your incision/area has: Continuous Slow Oozing, Sudden Increased Bleeding, Increased Redness, Foul Smelling Discharge and Swelling at the incision site Call your doctor if you observe: Fever of 101 or Higher, Using more than 1 pad per hour, Dizziness, Chest pain, Calf discomfort and Uncontrolled pain Change Dressing in: leave in place till F/U Please Follow Up With: Elba Ledezma DO When: 1 week for incision check Meaningful Use Info Meaningful Use Diagnoses (Choose all that apply): None applicable Discharge Plan Admission Admit Date/Time: 01/23/22 09:25 Primary Reason for Your Visit: Repeat section Attending Provider: Elba Ledezma Primary Care Provider: EMMANUEL SILVA Discharge Orders/Prescriptions Prescriptions: No Action ferrous sulfate 27 mg iron Tablet 27 mg PO QODAY 1 mg Tablet 1 tab PO DAILY Referrals / Follow Up: EMMANUEL SILVA [Other] Disposition Disposition (needs filled in before D/C Order can be placed): Home, Self Care
[2022-01-24 08:01] VITALS: BP 102/51; PULSE 78; RESP 16; TEMP 36.6; O2SAT 95
[2022-01-24] MEDS: Senna/Docusate Sodium 1 Tablet PO (09:55)
[2022-01-24 11:55] VITALS: BP 111/62; PULSE 78; RESP 15; TEMP 36.1; O2SAT 95
[2022-01-24] MEDS: Ibuprofen 600 MG Tablet PO (13:53)
[2022-01-24 16:06] VITALS: BP 103/52; PULSE 84; RESP 14; TEMP 36.5; O2SAT 97
--- NOTE | 2022-01-24 16:30 | PCM.DC.SUM ---
Providers Date of Admission: 01/23/22 Primary Care Physician: FRANK Pérez Reason For Visit: REPEAT C SECTION Diagnosis Discharge Diagnosis (1) Status post repeat low transverse section: Status: Acute Code(s): Z98.891 - History of uterine scar from previous surgery (2) Care and examination of lactating mother: Status: Acute Code(s): Z39.1 - Encounter for care and examination of lactating mother Medications at Discharge Home Medications ferrous sulfate 27 mg iron tablet 27 mg PO QODAY ANEMIA 01/23/22 [id number] 1 mg tablet 1 tab PO DAILY 01/23/22 oxycodone 5 mg tablet 5 mg PO Q6H PRN PRN Pain Score 6-10 7 days #10 tabs 01/24/22 Weight / BMI Weight Weight: 165 lb 5.547 oz Body Mass Index (BMI) 28.3 ABG / Lab / Microbiology Data Result Diagrams: 01/24/22 05:15 Laboratory: Laboratory Results - last 24 hr 01/24/22 05:15: WBC 13.1 H, RBC 3.78 L, Hgb 11.0 L, Hct 34.1 L, MCV 90.2, MCH 29.1, MCHC 32.3, RDW Std Deviation 48.8 H, RDW Coeff of Estefany 15.0 H, Plt Count 153, MPV 11.9 D/C Instructions Discharge Diet: No restrictions May resume sexual activity in: 6-8 weeks Weight Bearing Status: Weight bearing as tolerated Call your doctor if your incision/area has: Continuous Slow Oozing, Sudden Increased Bleeding, Increased Redness, Foul Smelling Discharge and Swelling at the incision site Call your doctor if you observe: Fever of 101 or Higher, Using more than 1 pad per hour, Dizziness, Chest pain, Calf discomfort and Uncontrolled pain Please Follow Up With: Elba Ledezma DO When: 1 week for incision check Meaningful Use Info Meaningful Use Diagnoses (Choose all that apply): None applicable Discharge Plan Admission Admit Date/Time: 01/23/22 09:25 Primary Reason for Your Visit: Repeat section Attending Provider: Elba Ledezma Primary Care Provider: Dagoberto Severino Discharge Orders/Prescriptions Prescriptions: New oxycodone 5 mg Tablet 5 mg PO Q6H PRN PRN (Reason: Pain Score 6-10) 7 Days Qty: 10 0RF No Action ferrous sulfate 27 mg iron Tablet 27 mg PO QODAY 1 mg Tablet 1 tab PO DAILY Referrals / Follow Up: EMMANUEL SEVERINO [Other] Disposition Disposition (needs filled in before D/C Order can be placed): Home, Self Care
--- NOTE | 2022-02-25 13:13 | PCM.HP.BLA ---
History and Physical Date of Admission: 01/23/22 PROBLEM: repeat section with sterilization ? DIAGNOSIS: history prior section, request for sterilization ? PAST SURGICAL HISTORY: PAST SURGICAL HISTORYExpand by Default PAST SURGICAL HISTORY Procedure Laterality Date ? DELIVERY ONLY ? 08/10/2018 ? C/S low transverse ? PAST SURGICAL HISTORY OF ? ? ? wisdom teeth ? ? PAST MEDICAL HISTORY: PAST MEDICAL HISTORYExpand by Default PAST MEDICAL HISTORY Diagnosis Date ? Atypical squamous cells cannot exclude high grade squamous intraepithelial lesion on cytologic smear of cervix ([facility]) 06/30/2021 ? Iron deficiency anemia during , antepartum 05/15/2018 ? Pityriasis versicolor ? ? ? SUBJECTIVE: Doing well see quick note ? SOCIAL HISTORY: SOCIAL HISTORYExpand by Default Social History ? Tobacco Use ? Smoking status: Never ? Smokeless tobacco: Never Vaping Use ? Vaping Use: Never used Substance Use Topics ? Alcohol use: No ? Drug use: No ? ? ALLERGIESExpand by Default ALLERGIES Allergen Reactions ? Ketoconazole Rash ? Benadryl [Diphenhyd* Intolerance ? ? Causes Epistaxis ? Brompheniramine Mal* Other: See Comments ? Dextromethorphan Hbr Other: See Comments ? Dimetapp [Brompheni* Intolerance ? ? Causes Epistaxis ? Fluconazole Hives ? Phenylephrine Hcl Other: See Comments ? Current Outpatient Medications on File Prior to Visit Medication Sig ? ferrous sulfate 325 mg (65 mg iron) tablet Take 1 tablet by mouth twice daily. ? [id number]-[id number]-FA tab Take 1 tablet by mouth. ? ? docosahexanoic acid (DHA ORAL) Take by mouth. ? ? ondansetron orally disintegrating (ZOFRAN ODT) 4 mg disintegrating tablet Take 1 tablet by mouth every 6 hours as needed for Nausea/Vomiting. ? No current facility-administered medications on file prior to visit. ? OBJECTIVE: ? VITALS: BP 92/60 Wt 160 lb 6.4 oz (72.8 kg) LMP 04/25/2021 (Exact Date) BMI 27.53 kg/m? ? HEENT: Normocephalic, atraumatic, Mucus membranes moist without lesions. ? NECK: Soft and Supple. No adenopathy , thyromegaly or bruits. ? SKIN: No lesions. ? CHEST: No increased resp effort. ? HEART: Regular rate. ? ABDOMEN: Soft, non-tender, non-distended, gravid. ? LOWER EXTREMITIES: There was no pitting edema, no palpable cords and no skin changes. ? ASSESSMENT: repeat C/S with sterilization ? PLAN: 1) She understands sterilization is permanent and irreversible, and there is a risk of regret. She understands other options for contraception. Discussed repeat section with bilateral salpingectomy. She declines TOLAC. The rationale for the proposed surgery was discussed in addition to risks, benefits, and alternatives. General pre- and post-operative care was reviewed. Questions were answered. After discussion, the patient indicated a desire to proceed with the planned surgery. ? Elba Ledezma, DO Assessment & Plan Assessment/Plan (1) 39 weeks gestation of : PLAN: Routine pre op care. Discussed r/b/a to repeat section with bilateral salpingectomy and consent obtained. Patient desires to proceed. (2) Request for sterilization:
== END 2022-01-24 18:05 | disposition home or self-care (01) | DRG 541 ==
PROVIDERS: Admitting Provider Obstetrics & Gynecology; PCP Physician Assistant; Visit Provider Obstetrics & Gynecology
PROC: 10E0XZZ Delivery of Products of Conception, External Approach (ICD-10-PCS; CPT 59514; principal; 2022-01-23 11:45)
DX: O34.211 Maternal care for low transverse scar from previous cesarean delivery (principal); Z37.0 Single live birth; Z30.2 Encounter for sterilization; Z3A.39 39 weeks gestation of pregnancy
CPT/HCPCS: 59050; 85025; 85027; 86850; 86900; 86901; 88302; 99218; J7120; A4216; G0378; J2405